=== PATIENT | male | born 1965 | race Hispanic/Latino ===

== ENCOUNTER 2019-08-16 08:26 | Outpatient (CLI) | payer OTHER ==
--- NOTE | 2019-08-16 15:10 | MRI ---
MRI PELVIS (PROSTATE) WITH AND WITHOUT IV CONTRAST: 08/16/19 HISTORY: 54-year-old male with elevated PSA (7.53). Patient denies biopsy. TECHNIQUE: Multiplanar and multisequence MRI of the pelvis was performed with and without IV contrast using the prostate protocol. Review was also performed on an independent 3D workstation. FINDINGS: The prostate measures 6.5 x 6 x 8 cm with a volume of 163 mL. No focal area of restricted diffusion is seen in the peripheral zone to suggest a malignant process. No lentiform area of abnormally decreased T2 signal is noted in the transition zone to suggest a skylar gnant process. No focal arterial enhancing mass is seen. The prostatic capsule is intact. The seminal vesicles are intact. No pelvic lymphadenopathy is seen. The pelvic sidewall is normal. No abnormality of the visualized portions of the rectum is seen. No abnormalities of signal replacement are seen on the T1 weighted sequences of the pelvis to suggest osseous metastatic disease. IMPRESSION: PI-RADS 2: Low grade (clinically significant prostate cancer is unlikely to be present). POS: CELINA
== END 2019-08-16 08:27 | disposition home or self-care (01) ==
LOC: TBSIIMAG 08:26
PROVIDERS: ATTEND Urology
DX: R97.20 Elevated prostate specific antigen [PSA] (principal)
CPT/HCPCS: 72197

== ENCOUNTER 2021-02-22 13:15 | Inpatient (IN) | payer OTHER ==
[2021-02-21 10:30] VITALS: BMI 35.2
[2021-02-22 14:30] LABS: Mean Corpuscular HGB CONC 33.4 g/dL (32.0-36.0); Mean Corpuscular Hemoglobin 27.9 pg (27.0-33.0); Mean Corpuscular Volume 83.5 fl (81.2-95.1); Mean Platelet Volume 11.3 fl (7.4-10.4); Platelet Count 284 10x3/uL (150-450); RBC Distribution Width 12.5 % (11.5-14.5); Red Blood Cell (RBC) Count 5.02 10x6/uL (4.32-5.72); White Blood Cell (WBC) Count 7.7 10x3/uL (3.5-10.5)
[2021-02-22 14:41] LABS: Anion Gap 12 mmol/L (10-20); BUN (Urea Nitrogen) 19 mg/dL (8.4-25.7); Calc. Creatinine Clearance 0 mL/min (70-130); Calcium 8.6 mg/dL (7.8-10.44); Carbon Dioxide 28 mmol/L (22-29); Chloride 104 mmol/L (98-107); Glucose 167 mg/dL (70-105); Potassium 3.8 mmol/L (3.5-5.1); Sodium 140 mmol/L (136-145)
[2021-02-23 12:45] LABS: SARS-CoV-2 PCR by NAA DETECTED (NotDetected)
[2021-02-25] MEDS ORDERED: Midazolam HCl 2 mg/2 ml Vial ONE (06:24)
[2021-02-25] MEDS ORDERED: Fentanyl 250 MCG/5 ML VIAL ONE (06:24)
[2021-02-25] MEDS ORDERED: Phenylephrine 10 MG/ML VIAL ONE (06:25)
[2021-02-25] MEDS ORDERED: Dexmedetomidine 200 MCG/2 ML VIAL ONE (06:25)
[2021-02-25] MEDS ORDERED: Albumin 5% 0 ML ONE (06:34)
== END 2021-02-25 06:59 | disposition home or self-care (01) | DRG 306 ==
LOC: SURG A 02-25 06:08
PROVIDERS: ADMIT Thoracic Surgery (Cardiothoracic Vascular Surgery); ATTEND Thoracic Surgery (Cardiothoracic Vascular Surgery)
DX: I35.0 Nonrheumatic aortic (valve) stenosis (principal); U07.1 COVID-19; F41.9 Anxiety disorder, unspecified; I10 Essential (primary) hypertension; Z90.49 Acquired absence of other specified parts of digestive tract; Z90.89 Acquired absence of other organs; Z79.82 Long term (current) use of aspirin; Z79.84 Long term (current) use of oral hypoglycemic drugs; Z79.899 Other long term (current) drug therapy
CPT/HCPCS: 80048; 85027; 86850; 86900; 86901; J2250; J2370; J3010; P9045; U0003; U0005

== ENCOUNTER 2022-07-31 14:04 | Outpatient (CLI) | payer OTHER | END 2022-07-31 14:05 | disposition home or self-care (01) | LOC: SCSMRI 14:04 | PROVIDERS: ATTEND Family Medicine | DX: M47.26 Other spondylosis with radiculopathy, lumbar region (principal); M48.062 Spinal stenosis, lumbar region with neurogenic claudication | CPT/HCPCS: 72148 ==